=== PATIENT | male | born 1960 | race African-American/Black ===

== ENCOUNTER 2016-11-09 01:36 | Emergency (ER) | payer OTHER ==
[~2016-11-09] VITALS: Ht 185.4 cm; Wt 90.7 kg
[~2016-11-09 01:36] MED LIST: ADVAIR 100-501 EACH INH; AVELOX 400 MG400 MG PO; AZITHROMYCIN 2250 MG PO; BACTRIM DS TAB1 EACH PO; BACTRIM OR; CHERATUSSIN DA480 ML PO; DIAZEPAM 10 MG10 M1 PO; DIAZEPAM 10 MG10 M2 PO; HIV MEDS; HYDROCODON-ACE1 EAC5 PO; LEXIVA700 MG PO; LISINOPRIL10 MG; LISINOPRIL10 MG PO; LISINOPRIL5 MG PO; METFORMIN HCL500 MG PO; MUCINEX TA600 MG/TA1 PO; NORCO 10-325 T1 EACH PO; NORVIR100 M1 PO; OXYCONTIN20 MG PO; PEPCID40 MG PO; PHENERGAN 25 MG25 M1 PO; PREDNISONE 20 M20 M1 PO; PREDNISONE 5 MG5 M1 PO; PROTONIX40 MG PO; PROVENTIL HFA6.7 G1 INH; ROBITUSSIN DM118 ML PO; SMZ/TMP; SOMA250 MG PO; TESSALON PERLE100 MG PO; TRAMADOL; TRAMADOL 50 MG50 MG PO; TRIUMEQ TABLET1 EACH PO; TRUVADA1 EAC1 PO; TRUVADA1 EACH PO; TUSSIONEX PENN473 ML PO; ULTRAM 50MG TAB50 MG PO; VENTOLIN HFA 1818 GM; VITAMIN D1000 UNI1 PO; ZANTAC 150MG T150 M1 PO; ZANTAC 150MG T150 MG PO; ZPAK PO
[2016-11-09 03:36] VITALS: BP 145/78
[2016-11-09] MEDS ORDERED: REGLAN 10 MG TA10 MG PO (18:47)
== END 2016-11-09 03:50 | disposition home or self-care (01) ==
LOC: ER 01:36
DX: F41.9 Anxiety disorder, unspecified (principal); J45.909 Unspecified asthma, uncomplicated; F17.210 Nicotine dependence, cigarettes, uncomplicated; Z88.6 Allergy status to analgesic agent; Z88.0 Allergy status to penicillin; Z88.8 Allergy status to other drugs, medicaments and biological substances

== ENCOUNTER 2016-11-09 16:25 | Emergency (ER) | payer OTHER ==
[~2016-11-09] VITALS: Ht 177.8 cm; Wt 72.6 kg
--- NOTE | ~2016-11-09 | EKG ---
[place] [address] [facility] [place] [address] ELECTROCARDIOGRAM REPORT Name: RAGINI ROBERT Room #: DEP ESTRELLA Carr#: [id number] Admission: 11/09/16 Attend Phys: Discharge: 11/09/16 Date of : 64 Report #: [id number] THIS REPORT FOR: //name// [facility] ED Test Date: 2016-11-09 Test Time: 18:05:24 Pat Name: RAGINI ROBERT Department: Room: Gender: [place] [employer] Worker: VENECIA : 1960 Requested By: Cole Mesa Order Number: [id number] MD: Brad Hammond Measurements Intervals [place] Rate: 89 P: 74 WA: 161 QRS: 100 QRSD: 92 T: 69 QT: 371 QTc: 452 Interpretive Statements Sinus rhythm Consider left atrial enlargement Right axis deviation ST elev, probable normal early repol pattern Compared to ECG 05/22/2015 02:01:34 ST (T wave) deviation now present Electronically Signed On 11-13-2016 21:54:39 CDT by Brad Hammond [email or web address] <ELECTRONICALLY SIGNED> By: Brad Hammond MD 11/13/16 2154 180 04 Brad Hammond MD /JI
[2016-11-09 17:26] LABS: CALCIUM 8.9 mg/dL (8.5-10.1); CREATININE 1.2 mg/dL (0.7-1.3); POTASSIUM 3.9 mmol/L (3.5-5.1)
[2016-11-09 17:29] LABS: ABSOLUTE NEUTROPHILS 2.6 thou/uL (1.4-8.2); BASOPHILS 1.1 % (0.0-2.0); EOSINOPHILS 4.8 % (0.0-3.0); HEMATOCRIT 41.6 % (42.0-52.0); LYMPHOCYTES 41.3 % (24.0-44.0); MANUAL DIFF NO; MCH 34.2 pg (26.0-34.0); MCHC 33.7 g/dL (28.0-37.0); MCV 101.4 fL (80.0-100.0); MONOCYTES 9.8 % (1.0-8.0); PLATELET COUNT 311 thou/uL (150-400); RBC 4.11 mil/uL (4.50-6.00); RDW 14.5 % (10.5-14.5); WBC 6.1 thou/uL (4.0-11.0)
[2016-11-09] MEDS ORDERED: REGLAN 10 MG TA10 MG PO (18:47)
[2016-11-09 19:04] VITALS: BP 135/65
== END 2016-11-09 19:05 | disposition short-term general hospital (02) ==
LOC: ER 16:25
PROVIDERS: Physician Assistant
DX: R51 Headache (principal); J45.909 Unspecified asthma, uncomplicated; F17.210 Nicotine dependence, cigarettes, uncomplicated; Z88.6 Allergy status to analgesic agent; Z88.0 Allergy status to penicillin; Z88.8 Allergy status to other drugs, medicaments and biological substances